=== PATIENT | male | born 1985 | race Two or more races ===

== ENCOUNTER 2025-06-12 12:08 | Emergency (ER) | payer OTHER, SELFPAY ==
[2025-06-12 12:09] VITALS: BMI 27.4
--- NOTE | 2025-06-12 12:27 | EDNOTE_ITS ---
ED Head Injury RME/HPI General Chief complaint: Head Injury Stated complaint: METAL PIECES FELL ON MY HEAD AT WORK Time Seen by Provider: 06/12/25 12:13 Arrival date/time: 06/12/25 12:08 RME / HPI RME / HPI Narrative: Healthy 39-year-old male presents ER complaining of headache and head injury after 3 large metal hooks which were used on big machines hit his head from about 2 feet above his head. Denies any loss of consciousness, nausea, vomiting, numbness, tingling, weakness, neck pain. Unknown Tdap Related Data Previous Rx's ?Medication ?Instructions ?Recorded cephalexin 500 mg tablet 500 mg PO BID #14 tabs 11/19 ibuprofen 800 mg tablet 800 mg PO Q6H PRN pain #10 t abs 11/19/20 Allergies Allergy/AdvReac Type Severity Reaction Status Date / Time No Known Allergies Allergy Verified 06/12/25 12:09 ED Exam Narrative Physical exam: Constitutional: Patient alert, oriented, in no acute distress. Head/Face: Positive tenderness to palpation, mild edema noted to the right anterior aspect of his parietal region with a scant abrasion. No hematomas or step-offs. Face symmetric. No midface instability. No raccoon eyes bilaterally. No kramer signs bilaterally. Eyes: Conjunctiva clear bilaterally. Sclera anicteric bilaterally. Pupils equal, round, and reactive to light bilaterally. Extraocular movements intact bilaterally. No hyphema. Ears: External ears normal. TMs grossly intact. No hemotympanum bilaterally. No otorrhea. No mastoid tenderness. Nose: Septum midline. No rhinorrhea.No septal hematoma. Mouth/Throat: Oropharynx clear. Moist mucous membranes. Uvula midline. No tonsillar edema or exudate. No peritonsillar fullness. No trismus. Handling secretions without difficulty. No stridor. Neck: Trachea midline. Supple. No JVD. No midline tenderness or step-offs. No nuchal rigidity. Chest: Symmetric chest rise. Breath sounds equal bilaterally. No tenderness, deformity, or crepitus. Cardiovascular: RRR. Normal S1/S2. No murmurs or rubs. Radial pulses intact bilaterally. Abdomen: Soft. Non-distended. Non-tender throughout. No pulsatile mass. No rebound or guarding. Pelvis: Stable and non-tender to compression. No deformity. Back: No CVA tenderness bilaterally. No midline spinal tenderness. No step- offs. Upper Extremities: No gross deformities. No focal motor or sensory deficits bilaterally. Lower Extremities: No gross deformities. No focal motor or sensory deficits bilaterally. Neuro: Alert and oriented. Speech normal. CN II?XII grossly intact. GCS 15. Skin: Warm, dry, normal color. Course Quality Measures none Orders Category Date Time Status CT head/brain wo con Stat Exams 06/12/25 12:28 Completed Acetaminophen Tab [Tylenol ES Tab] Med 06/12/25 12:28 Discontinued 1,000 mg PO X1 ONE TET,DIP/PERT AC (Adult)-Tdap [Boostrix Adult (Tdap) Med 06/12/25 12:28 Discontinued Vacc] 0.5 ml IMI .ONCE ONE Vital Signs Vital signs: Vital Signs Temperature 98.3 F 06/12/25 12:30 Pulse Rate 73 06/12/25 12:30 Respiratory Rate 18 06/12/25 12:30 Blood Pressure 122/78 06/12/25 12:30 Pulse Oximetry (%) 97 06/12/25 12:30 Oxygen Delivery Method Room Air 06/12/25 12:30 Head Injury MDM Narrative MDM Narrative:: MDM: Based on today's evaluation, this patient's head injury is without serious intracranial injury such as hemorrhage. Based on symptoms, physical exam, and a normal CT brain, which was done after risks and benefits of doing the test were discussed, the patient is felt to be at very low risk of deterioration and can reliably be observed at home. CT was indicated. Warning signs for which immediate return is indicated have been reviewed in detail. At the time of reassessment prior to discharge, the patient remains alert and oriented ?3 with GCS 15. Vitals are normal, pain is controlled, and the patient is tolerating oral intake without nausea or vomiting. The patient is agreeable to discharge and verbalizes understanding of the diagnosis, studies, treatment plan, medications (including side effects/precautions), and strict ER return precautions as discussed in the ED. All concerns were addressed, and the patient is comfortable with the plan. Patient data External records reviewed:: [facility] previous records Clinical information provided by:: patient Social determinants that could affect healthcare access:: none Patient has the following chronic illnesses:: As noted okay How is presenting disease/condition affected by chronic disease/condition?: no chronic disease Evaluation data The following diagnostics were reviewed and interpreted by me:: radiology exam(s) Lab and/or radiology exams considered but not ordered:: Additional Labs and radiology considered, but not ordered as they were not clinically indicated at this time. Interpretation Summary: As noted Medications / Prescriptions Medications or Prescriptions considered but not ordered:: I ordered medications based on the patient?s clinical needs and assessment, as documented in the chart. For medications not prescribed, they were not indicated for the patient's current condition, and I determined they were unnecessary at this time to avoid potential risks or complications. Medication administrations:: Medication Administration History Discontinued Medications Acetaminophen (Acetaminophen 500 Mg Tablet) 1,000 mg PO X1 ONE Stop: 06/12/25 12:29 Diphtheria/Tetanus/Acell Pertussis (Diphth,Pertuss(Acell),Tet Vac 0.5 Ml Syr- Adult) 0.5 ml IMi .ONCE ONE Stop: 06/12/25 12:29 As noted Consultations Consultation(s) initiated? (list below): No Diagnosis Differential diagnosis head injury: concussion without loss of consciousness, closed head injury and subarachnoid hematoma Most likely diagnosis given after review of the tests above:: Concussion Admission Indicated Admission indicated?: indicated Admission Request Was there a request for admission?: No Disposition Plan Disposition Plan: Discharge Discharge Attestation Discharge Attestation: The patient and all family members were given an opportunity to ask questions and understood the discharge instructions. Discharge instructions specifically effects, indications for sooner follow up or return to the emergency department, and the expected course of current diagnosis. Patient condition: Stable Discharge Plan Plan Patient Disposition: HOME (Self Care) Patient condition on transfer: Stable Prescriptions/Referrals Prescriptions/Med Rec: No Action ibuprofen 800 mg tablet 800 mg PO Q6H PRN (Reason: pain) Qty: 10 0RF cephalexin 500 mg tablet 500 mg PO BID Qty: 14 0RF Problem List Clinical Impression: Closed head injury Patient/Caregiver Discharge Instructions Education Materials: ED Head Injury (Adult) Additional Instructions: Follow up with your primary medical doctor within 24 hours. Return to the Emerg ency Room immediately for any new, worsening, continuing symptoms or any concerns at all. Return to the Emergency Room within 24 hours if you are unable to follow up with your primary medical doctor within 24 hours. Print Language: Occitan Stand Alone Forms: Lucina Award Info., Patient Portal Info Letter PA/[employer] Supervising Physician PA/[employer] Supervising Physician: Dr. Bourne
--- NOTE | 2025-06-12 12:28 | XR_ITS ---
Examination: CT brain head without contrast. 2-D sagittal coronal reconstructions Date and time of exam: June 12, 2025, 1245 hours INDICATIONS: Hit with a metal pipe on the top of the head today, head pain CTDI: vol (mGy): 48.3 DLP: (mGycm): 976 Technique: Multiple CT axial sections of the brain have been obtained, 5 mm slice thickness. Contrast has not been administered. 2-D sagittal, coronal reconstructions have been obtained Low dose protocols were performed. One or more of the following dose reduction techniques were used; automated exposure control, adjustment of the mA and/or KV according to patient size, use of iterative reconstruction technique. Findings: No significant ventricular enlargement. Intra-axial or extra-axial hemorrhage density is not seen. No mass effect or midline shift Basal cisterns are not remarkable. Fourth ventricle is midline. Cranial vault intact. Prominent left maxillary sinusitis Impression: Negative for acute hemorrhage, mass effect or midline shift
[2025-06-12 12:30] VITALS: BP 122/78; PULSE 73; RESP 18; TEMP 36.8; O2SAT 97
[2025-06-12] MEDS: ACETAMINOPHEN 500 MG TABLET 1000 MG PO (15:00)
== END 2025-06-12 15:06 | disposition home or self-care (01) ==
LOC: SERX 14:47
PROVIDERS: Emergency Provider Physician Assistant
DX: S09.90XA Unspecified injury of head, initial encounter (principal); W22.8XXA Striking against or struck by other objects, initial encounter; Y93.89 Activity, other specified; Y92.512 Supermarket, store or market as the place of occurrence of the external cause
CPT/HCPCS: 70450; 99282; A9270